=== PATIENT | male | born 1980 | race American Indian/Alaskan Native ===

== ENCOUNTER 2017-07-06 18:53 | Emergency (ER) | payer OTHER ==
[2017-07-06] MEDS ORDERED: NS 0.9% 1000 ML* 2,000 ML IV ONE (19:29)
[2017-07-06] MEDS ORDERED: Morphine INJ* 4 MG/ML 1 ML CARPUJECT IV ONE (19:29)
[2017-07-06] MEDS ORDERED: Ondansetron INJ* 2 MG/ML VIAL IV ONE (19:29)
[2017-07-06] MEDS ORDERED: Pantoprazole IV* 40 MG IV ONE (19:29)
[2017-07-06] MEDS ORDERED: LORazepam INJ* 2 MG/ML 1 ML VIAL IV ONE (19:36)
[2017-07-06] MEDS ORDERED: Al Hydrox/Mg Hydrox/Simet LIQ* 30 ML UDC PO ONE (19:37)
[2017-07-06] MEDS ORDERED: Lidocaine 2% VISCOUS* 15 ML UDC PO ONE (19:37)
[2017-07-06 20:05] LABS: Hematocrit 39 % (42-52); Hemoglobin 13.1 g/dl (14.0-18.0); Mean Corpuscular HGB Conc 34 g/dl (31-36); Mean Corpuscular Hemoglobin 31 pg (27-31); Mean Corpuscular Volume 91 fL (80-94); Mean Platelet Volume 8 um3 (7.4-10.4); Red Blood Count 4.24 10^6/ul (4.0-5.4); Red Cell Distribution Width 14 % (10.5-15); White Blood Count 7.9 10^3/ul (3.5-10.8)
[2017-07-06 20:11] LABS: Urine Bilirubin Negative (Negative); Urine Glucose Negative (Negative); Urine Nitrite Negative (Negative)
[2017-07-06 20:15] LABS: Albumin 4.3 g/dL (3.2-5.2); BUN/Creatinine Ratio 17.3 (8-20); C Reactive Protein 1.17 mg/L (< 5.00); Calcium 9.5 mg/dL (8.6-10.3); EGFR African American 111.9 (>60); Globulin 2.2 g/dL (2-4); Potassium 3.9 mmol/L (3.5-5.0); Total Bilirubin 0.4 mg/dL (0.2-1.0); Total Protein 6.5 g/dL (6.4-8.9)
--- NOTE | 2017-07-06 20:27 | RAD ---
HISTORY: Right upper quadrant pain, epigastric pain, vomiting COMPARISONS: None TECHNIQUE: Multiple transverse and longitudinal ultrasound images were obtained of the right upper quadrant of the abdomen using grayscale and color Doppler imaging. FINDINGS: LIVER: The liver is normal in shape, size, contour, and echogenicity. There are no focal parenchymal masses. There is normal hepatopedal flow of the portal vein on Doppler imaging. BILIARY TREE: There is no intrahepatic or extrahepatic biliary dilatation. The common duct measures 0.3 cm. GALLBLADDER: The gallbladder is incompletely distended but is grossly normal. There is no sonographic Ness sign. PANCREAS: The head of the pancreas is unremarkable. The tail of the pancreas is not well visualized secondary to overlying bowel gas. RIGHT KIDNEY: The right kidney is normal in shape, size, contour, and echogenicity. There is no hydronephrosis or nephrolithiasis. The right kidney measures 12.6 x 5.1 x 5.4 cm. AORTA AND IVC: The aorta and IVC are unremarkable. FLUID: There are no pleural effusions. There is no free fluid within the hepatorenal recess. OTHER FINDINGS: None. IMPRESSION: NO ACUTE SONOGRAPHIC PATHOLOGY OF THE VISUALIZED PORTION OF THE ABDOMEN
--- NOTE | 2017-07-06 21:01 | RAD ---
HISTORY: Right knee patellar pain COMPARISONS: None VIEWS: 4, Frontal, lateral, axial, and oblique views of the right knee FINDINGS: BONE DENSITY: Normal. BONES: There is no displaced fracture. JOINTS: There is no arthropathy. ALIGNMENT: There is no dislocation. SOFT TISSUES: Unremarkable. OTHER FINDINGS: None. IMPRESSION: NO ACUTE OSSEOUS INJURY. IF SYMPTOMS PERSIST, RECOMMEND REPEAT IMAGING.
[2017-07-06] MEDS ORDERED: Omeprazole CAP* 20 MG PO ONE (23:01)
[2017-07-06] MEDS ORDERED: Ondansetron ODT TAB* 4 MG PO ONE (23:02)
--- NOTE | 2017-07-06 23:07 | ED ---
Elise Márquez Alfonso, scribed for Haris Silverman MD on 07/06/17 at 1936 . Abdominal Pain/Male - HPI Summary HPI Summary: This patient is a 36 year old M presenting to [facility] with a chief complaint of abdominal pain since 1600 today. The abd pain is described as "twisting in stomach" in right and middle side of abdomen. Pt reports acid reflux (gradually worsening for last 6 months), vomiting, and blood in stool (once a week for the past 6 months). The patient rates the pain 7/10 in severity. Pt reports that the stool has recently been soft and BM frequency has increased in the past few days. Pt reports right knee pain. - History of Current Complaint Chief Complaint: EDAbdPain Stated Complaint: VOMITING Time Seen by Provider: 07/06/17 19:25 Hx Obtained From: Patient Onset/Duration: Gradual Onset, Still Present, Other - lasting 6 months Timing: Intermittent Severity Currently: Moderate Pain Intensity: 7 Pain Scale Used: 0-10 Numeric Location: Other - right middle Character: Other: - "twisting in stomach" Alleviating Factor(s): Nothing Associated Signs And Symptoms: Positive: Other - acid reflux (gradually worsening for last 6 months), vomiting, and blood in stool (once a week for the past 6 months).the stool has recently been soft and BM frequency has increased in the past few days. Pt reports right knee pain. - Allergies/Home Medications Allergies/Adverse Reactions: Allergies Allergy/AdvReac Type Severity Reaction Status Date / Time No Known Allergies Allergy Verified 07/06/17 19:38 PMH/Surg Hx/FS Hx/Imm Hx GI History: Reports: Other GI Disorders - internal hemorrhoids, polyps in colon Musculoskeletal History: Reports: Hx Scoliosis, Other Musculoskeletal History - spina bifida Opthamlomology History: Denies: Hx Legally Blind EENT History: Denies: Hx Deafness Infectious Disease History: No Infectious Disease History: Reports: History Other Infectious Disease - H. pylori Denies: Traveled Outside the [place] in Last 30 Days - Family History Known Family History: Negative: Cardiac Disease - Social History Alcohol Use: None Hx Substance Use: No Substance Use Type: Reports: None Hx Tobacco Use: No Review of Systems Positive: Abdominal Pain, Vomiting, Other - acid reflux, blood in stool Positive: Other - knee pain All Other Systems Reviewed And Are Negative: Yes Physical Exam - Summary Physical Exam Summary: General: Mildly ill-appearing, no pain distress Skin: warm, color reflects adequate perfusion, dry Head: normal Eyes: EOMI, DANIELLA ENT: normal Neck: supple, nontender Respiratory: CTA, breath sounds present Cardiovascular: Tachycardic Abdomen: Tender in RUQ and epigastrium. Non tender lower abdomen Bowel: hypoactive bowel sounds Musculoskeletal: normal, strength/ROM intact Neurological: normal, sensory/motor intact, A&O x3 Psychological: affect/mood appropriate Triage Information Reviewed: Yes Vital Signs On Initial Exam: Initial Vitals Temp Pulse Resp BP Pulse Ox 98.4 F 97 20 125/83 98 07/06/17 19:01 07/06/17 19:01 07/06/17 19:01 07/06/17 19:01 07/06/17 19:01 Vital Signs Reviewed: Yes Diagnostics - Vital Signs Vital Signs Temp Pulse Resp BP Pulse Ox 07/06/17 19:01 98.4 F 97 20 125/83 98 - Laboratory Lab Results: Lab Results 07/06/17 07/06/17 07/06/17 Range/Units 19:44 19:44 19:44 WBC 7.9 (3.5-10.8) 10^3/ul RBC 4.24 (4.0-5.4) 10^6/ul Hgb 13.1 L (14.0-18.0) g/dl Hct 39 L (42-52) % MCV 91 (80-94) fL MCH 31 (27-31) pg MCHC 34 (31-36) g/dl RDW 14 (10.5-15) % Plt Count 180 (150-450) 10^3/ul MPV 8 (7.4-10.4) um3 Neut % (Auto) 52.0 (38-83) % Lymph % (Auto) 35.6 (25-47) % Vernon % (Auto) 9.3 H (1-9) % Eos % (Auto) 2.4 (0-6) % Baso % (Auto) 0.7 (0-2) % Absolute Neuts (auto) 4.1 (1.5-7.7) 10^3/ul Absolute Lymphs (auto) 2.8 (1.0-4.8) 10^3/ul Absolute Monos (auto) 0.7 (0-0.8) 10^3/ul Absolute Eos (auto) 0.2 (0-0.6) 10^3/ul Absolute Basos (auto) 0.1 (0-0.2) 10^3/ul Absolute Nucleated RBC 0 10^3/ul Nucleated RBC % 0 INR (Anticoag Therapy) 0.91 (0.89-1.11) APTT 30.9 (26.0-36.3) seconds Sodium 138 (133-145) mmol/L Potassium 3.9 (3.5-5.0) mmol/L Chloride 105 (101-111) mmol/L Carbon Dioxide 28 (22-32) mmol/L Anion Gap 5 (2-11) mmol/L BUN 17 (6-24) mg/dL Creatinine 0.98 (0.67-1.17) mg/dL Est GFR ( Amer) 111.9 (>60) Est GFR (Non-Af Amer) 87.0 (>60) BUN/Creatinine Ratio 17.3 (8-20) Glucose 99 (70-100) mg/dL Lactic Acid (0.5-2.0) mmol/L Calcium 9.5 (8.6-10.3) mg/dL Total Bilirubin 0.40 (0.2-1.0) mg/dL AST 19 (13-39) U/L ALT 37 (7-52) U/L Alkaline Phosphatase 47 (34-104) U/L C-Reactive Protein 1.17 (< 5.00) mg/L Total Protein 6.5 (6.4-8.9) g/dL Albumin 4.3 (3.2-5.2) g/dL Globulin 2.2 (2-4) g/dL Albumin/Globulin Ratio 2.0 (1-3) Lipase 15 (11.0-82.0) U/L Urine Color Urine Appearance Urine pH (5-9) Ur Specific Burgaw (1.010-1.030) Urine Protein (Negative) Urine Ketones (Negative) Urine Blood (Negative) Urine Nitrate (Negative) Urine Bilirubin (Negative) Urine Urobilinogen (Negative) Ur Leukocyte Esterase (Negative) Urine Glucose (Negative) 07/06/17 07/06/17 Range/Units 19:44 19:44 WBC (3.5-10.8) 10^3/ul RBC (4.0-5.4) 10^6/ul Hgb (14.0-18.0) g/dl Hct (42-52) % MCV (80-94) fL MCH (27-31) pg MCHC (31-36) g/dl RDW (10.5-15) % Plt Count (150-450) 10^3/ul MPV (7.4-10.4) um3 Neut % (Auto) (38-83) % Lymph % (Auto) (25-47) % Vernon % (Auto) (1-9) % Eos % (Auto) (0-6) % Baso % (Auto) (0-2) % Absolute Neuts (auto) (1.5-7.7) 10^3/ul Absolute Lymphs (auto) (1.0-4.8) 10^3/ul Absolute Monos (auto) (0-0.8) 10^3/ul Absolute Eos (auto) (0-0.6) 10^3/ul Absolute Basos (auto) (0-0.2) 10^3/ul Absolute Nucleated RBC 10^3/ul Nucleated RBC % INR (Anticoag Therapy) (0.89-1.11) APTT (26.0-36.3) seconds Sodium (133-145) mmol/L Potassium (3.5-5.0) mmol/L Chloride (101-111) mmol/L Carbon Dioxide (22-32) mmol/L Anion Gap (2-11) mmol/L BUN (6-24) mg/dL Creatinine (0.67-1.17) mg/dL Est GFR ( Amer) (>60) Est GFR (Non-Af Amer) (>60) BUN/Creatinine Ratio (8-20) Glucose (70-100) mg/dL Lactic Acid 0.9 (0.5-2.0) mmol/L Calcium (8.6-10.3) mg/dL Total Bilirubin (0.2-1.0) mg/dL AST (13-39) U/L ALT (7-52) U/L Alkaline Phosphatase (34-104) U/L C-Reactive Protein (< 5.00) mg/L Total Protein (6.4-8.9) g/dL Albumin (3.2-5.2) g/dL Globulin (2-4) g/dL Albumin/Globulin Ratio (1-3) Lipase (11.0-82.0) U/L Urine Color Straw Urine Appearance Clear Urine pH 7.0 (5-9) Ur Specific Burgaw 1.003 L (1.010-1.030) Urine Protein Negative (Negative) Urine Ketones Negative (Negative) Urine Blood Negative (Negative) Urine Nitrate Negative (Negative) Urine Bilirubin Negative (Negative) Urine Urobilinogen Negative (Negative) Ur Leukocyte Esterase Negative (Negative) Urine Glucose Negative (Negative) Result Diagrams: 07/06/17 19:44 07/06/17 19:44 Lab Statement: Any lab studies that have been ordered have been reviewed, and results considered in the medical decision making process. - Radiology Knee XRay Radiology Interpretation Completed By: Radiologist - NO ACUTE OSSEOUS INJURY. IF SYMPTOMS PERSIST, RECOMMEND REPEAT IMAGING. ED physician has reviewed this radiology report and agrees. - Additional Comments Diagnostic Additional Comments: US gallbladder reveals, per radiologist, NO ACUTE SONOGRAPHIC PATHOLOGY OF THE VISUALIZED PORTION OF THE ABDOMEN. ED physician has reviewed this radiology report and agrees. Abdominal Pain Fem Course/Dx - Course Course Of Treatment: IMPROVED IN ED. DISCUSSED RESULTS WITH PATIENT. RX OMEPRAZOLE AND ZOFRAN. F/U WITH PMD; RETURN IF WORSE. - Diagnoses Provider Diagnoses: Epigastric pain, Nausea & vomiting, GERD (gastroesophageal reflux disease) Discharge - Discharge Plan Condition: Stable Disposition: HOME Prescriptions: Omeprazole CAP* [Prilosec CAP* 20 MG] 20 mg PO BID #30 cap. Ondansetron ODT TAB* [Zofran 4 MG Odt TAB*] 4 mg PO Q6H PRN #15 tab.odt PRN Reason: Nausea Patient Education Materials: Gastroesophageal Reflux Disease (ED), Acute Nausea and Vomiting (ED), Epigastric Pain (ED), Knee Pain (ED) Referrals: No Primary Care Phys,NOPCP [Primary Care Provider] - [facility] [Outside] Additional Instructions: FOLLOW UP WITH YOUR DOCTOR. RETURN TO THE EMERGENCY DEPARTMENT FOR ANY WORSENING OF YOUR CONDITION; PAIN, FEVER, DEHYDRATION, YOU FEEL ILL OR QUESTIONS OR CONCERNS. The documentation as recorded by the Elise shepherd Alfonso accurately reflects the service I personally performed and the decisions made by , Haris Silverman MD.
[2017-07-06 23:15] VITALS: BP 129/76
== END 2017-07-06 23:16 | disposition home or self-care (01) ==
LOC: ED 18:53
DX: K21.9 Gastro-esophageal reflux disease without esophagitis (principal); R10.13 Epigastric pain; R11.2 Nausea with vomiting, unspecified; R10.9 Unspecified abdominal pain
CPT/HCPCS: 36415; 76705; 80053; 81003; 83605; 83690; 85025; 85610; 85730; 86140; 96374; 96375; 99282; A9270-GY; J2060; J2270; J2405

== ENCOUNTER 2017-07-18 10:37 | Emergency (ER) | payer OTHER ==
[2017-07-18 11:13] LABS: Hematocrit 39 % (42-52); Hemoglobin 13.1 g/dl (14.0-18.0); Mean Corpuscular HGB Conc 34 g/dl (31-36); Mean Corpuscular Hemoglobin 31 pg (27-31); Mean Corpuscular Volume 92 fL (80-94); Mean Platelet Volume 8 um3 (7.4-10.4); Red Blood Count 4.22 10^6/ul (4.0-5.4); Red Cell Distribution Width 14 % (10.5-15); White Blood Count 8.1 10^3/ul (3.5-10.8)
[2017-07-18 11:26] LABS: ALT 52 U/L (7-52); AST 27 U/L (13-39); Alkaline Phosphatase 61 U/L (34-104); Anion Gap 6 mmol/L (2-11); BUN/Creatinine Ratio 20.6 (8-20); Blood Urea Nitrogen 22 mg/dL (6-24); CO2 Carbon Dioxide 24 mmol/L (22-32); Calcium 9.3 mg/dL (8.6-10.3); Chloride 104 mmol/L (101-111); EGFR African American 101.1 (>60); EGFR Non-African American 78.6 (>60); Globulin 2.3 g/dL (2-4); Glucose 102 mg/dL (70-100); Potassium 4.1 mmol/L (3.5-5.0); Sodium 134 mmol/L (133-145); Total Protein 6.3 g/dL (6.4-8.9)
[2017-07-18 11:29] LABS: Urine Bilirubin Negative (Negative); Urine Glucose Negative (Negative); Urine Nitrite Negative (Negative)
[2017-07-18 11:38] LABS: Benzodiazepine Urine Screen None Detected (None Detect)
--- NOTE | 2017-07-18 11:54 | RAD ---
INDICATION: Atraumatic low back pain COMPARISON: None. TECHNIQUE: 3 views of the lumbar spine were obtained. FINDINGS: The vertebra are in normal alignment. No fracture is seen. Disc spaces appear maintained. . IMPRESSION: No evidence of fracture or subluxation.
[2017-07-18] MEDS ORDERED: Ibuprofen TAB* 600 MG PO ONE (12:12)
[2017-07-18 12:14] LABS: Acetaminophen < 15 mcg/mL; Alcohol < 10 mg/dL (<10); Salicylate < 2.50 mg/dL (<30)
[2017-07-18 12:28] LABS: TSH (Thyroid Stimulating Horm) 1.81 mcIU/mL (0.34-5.60)
[2017-07-18 14:18] VITALS: BP 112/73
--- NOTE | 2017-07-19 08:25 | ED ---
Paul Márquez Angela, scribed for Jeferson Orantes MD on 07/18/17 at 1056 . Psychiatric Complaint - HPI Summary HPI Summary: This pt is a 36 y/o male, with PMHx of schizophrenia, presenting to [facility] c/o auditory hallucinations. Pt reports that he has been hearing high pitched noises , described as "a group of people talking in the background." He denies visual hallucinations. Pt believes that he might have built up tolerance to the medications he is currently on. He has been on his medications for 1 year. Pt additionally c/o right lower back pain x4 days. He notes he has been sitting a lot recently due to group meetings. Pt reports gaining 20 lbs since then. PMHx includes schizophrenia, spina bifida, scoliosis. - History Of Current Complaint Chief Complaint: EDMentalHealth Time Seen by Provider: 07/18/17 10:45 Hx Obtained From: Patient Onset/Duration: Lasting Days, Still Present Timing: Days Severity Currently: Severe Character: Fearful Aggravating Factor(s): Other - built up tolerance to current medications Associated Signs And Symptoms: Positive: Hallucinating - POSITVIE auditory. DENIES visual. Has Suicidal: Denies: Thoughts, With A Plan - Allergies/Home Medications Allergies/Adverse Reactions: Allergies Allergy/AdvReac Type Severity Reaction Status Date / Time No Known Allergies Allergy Verified 07/06/17 19:38 PMH/Surg Hx/FS Hx/Imm Hx GI History: Reports: Other GI Disorders - internal hemorrhoids, polyps in colon Musculoskeletal History: Reports: Hx Scoliosis, Other Musculoskeletal History - spina bifida Sensory History: Denies: Hx Legally Blind, Hx Deafness Opthamlomology History: Denies: Hx Legally Blind Psychiatric History: Reports: Hx Schizophrenia Infectious Disease History: Yes Infectious Disease History: Reports: History Other Infectious Disease - H. pylori Denies: Traveled Outside the [place] in Last 30 Days - Family History Known Family History: Negative: Cardiac Disease - Social History Alcohol Use: None Hx Substance Use: No Substance Use Type: Reports: None Hx Tobacco Use: No Smoking Status (MU): Unknown if Ever Smoked Review of Systems Constitutional: Other - gained weight Negative: Fever, Chills Eyes: Negative ENT: Negative Cardiovascular: Negative Musculoskeletal: Other - right lower back pain Skin: Negative Psychological: Other - auditory hallucinations Negative: Other - visual hallucinations All Other Systems Reviewed And Are Negative: Yes Physical Exam - Summary Physical Exam Summary: VITAL SIGNS: Reviewed. GENERAL: Patient is a well-developed and nourished male who is lying comfortable in the stretcher. Patient is not in any acute respiratory distress. HEAD AND FACE: No signs of trauma. No ecchymosis, hematomas or skull depressions. No sinus tenderness. EYES: PERRLA, EOMI x 2, No injected conjunctiva, no nystagmus. EARS: Hearing grossly intact. Ear canals and tympanic membranes are within normal limits. MOUTH: Oropharynx within normal limits. NECK: Supple, trachea is midline, no adenopathy, no JVD, no carotid bruit, no c- spine tenderness, neck with full ROM. CHEST: Symmetric, no tenderness at palpation LUNGS: Clear to auscultation bilaterally. No wheezing or crackles. CVS: Regular rate and rhythm, S1 and S2 present, no murmurs or gallops appreciated. ABDOMEN: Soft, non-tender. No signs of distention. No rebound no guarding, and no masses palpated. Bowel sounds are normal. EXTREMITIES: FROM in all major joints, no edema, no cyanosis or clubbing. MSK: right paraspinal muscle tenderness. NEURO: Alert and oriented x 3. No acute neurological deficits. Speech is normal and follows commands. SKIN: Dry and warm Triage Information Reviewed: Yes Vital Signs On Initial Exam: Initial Vitals Temp Pulse Resp BP Pulse Ox 97.6 F 106 18 113/83 97 07/18/17 10:41 07/18/17 10:41 07/18/17 10:41 07/18/17 10:41 07/18/17 10:41 Vital Signs Reviewed: Yes Diagnostics - Vital Signs Vital Signs Temp Pulse Resp BP Pulse Ox 07/18/17 10:41 97.6 F 106 18 113/83 97 - Laboratory Result Diagrams: 07/18/17 11:00 07/18/17 11:00 Lab Statement: Any lab studies that have been ordered have been reviewed, and results considered in the medical decision making process. - Radiology Lumbar spine XR Xray Interpretation: No Acute Changes - IMPRESSION: No evidence of fracture or subluxation. ED physician has reviewed this radiology report and agrees. Radiology Interpretation Completed By: Radiologist Course/Dx - Course Assessment/Plan: This pt is a 36 y/o male, with PMHx of schizophrenia, presenting to [facility] c/o auditory hallucinations. Pt reports that he has been hearing high pitched noises, described as "a group of people talking in the background." He denies visual hallucinations. Pt believes that he might have built up tolerance to the medications he is currently on. He has been on his medications for 1 year. Pt additionally c/o right lower back pain x4 days. He notes he has been sitting a lot recently due to group meetings. Pt reports gaining 20 lbs since then. PMHx includes schizophrenia, spina bifida, scoliosis. All blood work within normal limits. Lumbar spine XR shows no evidence of fracture or subluxation. Pt is medically cleared. He is waiting for [facility]. Pt's case was reviewed by Dr. Dumont, who recommends discharge. Pt's medications will need to be adjusted at [facility]. Pt will be discharged with diagnosis of schizophrenia. - Differential Dx/Clinical Impression Provider Diagnosis: Schizophrenia Discharge - Discharge Plan Condition: Stable Disposition: HOME Referrals: No Primary Care Phys,NOPCP [Medical Doctor] - The documentation as recorded by the Paul shepherd Angela accurately reflects the service I personally performed and the decisions made by me, Jeferson Orantes MD.
== END 2017-07-18 13:26 | disposition home or self-care (01) ==
LOC: ED 10:37
DX: F20.9 Schizophrenia, unspecified (principal); R44.3 Hallucinations, unspecified; M54.5 Low back pain
CPT/HCPCS: 36415; 72100; 80053; 80307; 80320; 80329; 81003; 84443; 85025; 99284; A9270-GY; G0480

== ENCOUNTER 2017-07-21 12:50 | Emergency (ER) | payer OTHER ==
[2017-07-21] MEDS ORDERED: hydrOXYzine HCL TAB* 50 MG PO ONE (13:51)
[2017-07-21 14:31] LABS: Hematocrit 40 % (42-52); Hemoglobin 13.6 g/dl (14.0-18.0); Mean Corpuscular HGB Conc 34 g/dl (31-36); Mean Corpuscular Hemoglobin 31 pg (27-31); Mean Corpuscular Volume 91 fL (80-94); Mean Platelet Volume 8 um3 (7.4-10.4); Red Blood Count 4.39 10^6/ul (4.0-5.4); Red Cell Distribution Width 14 % (10.5-15); White Blood Count 8.8 10^3/ul (3.5-10.8)
[2017-07-21 14:47] LABS: ALT 37 U/L (7-52); AST 23 U/L (13-39); Albumin 4.7 g/dL (3.2-5.2); Alkaline Phosphatase 54 U/L (34-104); Anion Gap 7 mmol/L (2-11); Blood Urea Nitrogen 15 mg/dL (6-24); CO2 Carbon Dioxide 29 mmol/L (22-32); Calcium 9.4 mg/dL (8.6-10.3); Chloride 103 mmol/L (101-111); EGFR African American 109.4 (>60); Globulin 2.4 g/dL (2-4); Glucose 99 mg/dL (70-100); Sodium 139 mmol/L (133-145); Total Protein 7.1 g/dL (6.4-8.9)
[2017-07-21 14:59] LABS: Urine Bilirubin Negative (Negative); Urine Glucose Negative (Negative); Urine Nitrite Negative (Negative)
[2017-07-21 15:16] LABS: Benzodiazepine Urine Screen None Detected (None Detect)
[2017-07-21 15:19] LABS: Acetaminophen < 15 mcg/mL; Alcohol < 10 mg/dL (<10); Salicylate < 2.50 mg/dL (<30)
[2017-07-21 16:33] VITALS: BP 131/77
--- NOTE | 2017-07-21 22:26 | ED ---
Adelina Márquez Abhishek, scribed for Kirt Garcia MD on 07/21/17 at 1324 . Psychiatric Complaint - HPI Summary HPI Summary: This patient is a 36 year old M presenting to [facility] with a chief complaint of psychiatric complaint 07/15/17. The patient rates the pain 0/10 in severity. Symptoms aggravated by medication. Symptoms alleviated by nothing. Patient reports anxiety, muscle cramping, and auditory hallucinations described as a group of people talking into patients ear. Patient denies SI, sleeping problems and HI. The patient reports taking the following medication(s): risperidone (3mg twice a day). PMHX of schizophrenia. - History Of Current Complaint Chief Complaint: EDMentalHealth Time Seen by Provider: 07/21/17 13:02 Hx Obtained From: Patient Onset/Duration: Gradual Onset, Lasting Days - since 07/21/17, Still Present Timing: Constant Character: Anxious Aggravating Factor(s): Other - Prescribed medication Alleviating Factor(s): Nothing Associated Signs And Symptoms: Positive: Hallucinating. Negative: Hostile Related History: Positive For: Prior Psychiatric Issues - schizophrenia Has Suicidal: Denies: Thoughts Has Homicidal: Denies: Thoughts - Allergies/Home Medications Allergies/Adverse Reactions: Allergies Allergy/AdvReac Type Severity Reaction Status Date / Time No Known Allergies Allergy Verified 07/21/17 12:55 PMH/Surg Hx/FS Hx/Imm Hx GI History: Reports: Other GI Disorders - internal hemorrhoids, polyps in colon Musculoskeletal History: Reports: Hx Scoliosis, Other Musculoskeletal History - spina bifida Sensory History: Denies: Hx Legally Blind, Hx Deafness Opthamlomology History: Denies: Hx Legally Blind Psychiatric History: Reports: Hx Schizophrenia Denies: Hx Eating Disorder, Hx of Violent Episodes Against Others - Immunization History Immunizations Up to Date: Yes Infectious Disease History: No Infectious Disease History: Reports: History Other Infectious Disease - H. pylori Denies: Traveled Outside the [place] in Last 30 Days - Family History Known Family History: Positive: Diabetes, Other - Cancer Negative: Cardiac Disease - Social History Alcohol Use: None Hx Substance Use: No Hx Tobacco Use: No Smoking Status (MU): Current Some Day Smoker Review of Systems Constitutional: Negative Eyes: Negative ENT: Negative Cardiovascular: Negative Respiratory: Negative Gastrointestinal: Negative Genitourinary: Negative Positive: Other - Muscle cramping Skin: Negative Neurological: Other - auditory hallucinations described as "a group of people talking" Positive: Anxious, Other - Negative SI, HI, sleeping problems All Other Systems Reviewed And Are Negative: Yes Physical Exam - Summary Physical Exam Summary: Constitutional: Well-developed, Well-nourished, Alert. (-) Distressed Skin: Warm, Dry HENT: Normocephalic; Atraumatic Eyes: Conjunctiva normal Neck: Musculoskeletal ROM normal neck. (-) JVD, (-) Stridor, (-) Tracheal deviation Cardio: Rhythm regular, rate normal, Heart sounds normal; Intact distal pulses; The pedal pulses are 2+ and symmetric. Radial pulses are 2+ and symmetric. (-) Murmur Pulmonary/Chest wall: Effort normal. (-) Respiratory distress, (-) Wheezes, (-) Rales Abd: Soft, (-) Tenderness, (-) Distension, (-) Guarding, (-) Rebound Musculoskeletal: (-) Edema Lymph: (-) Cervical adenopathy Neuro: Alert, Oriented x3 Psych: anxious appearing Triage Information Reviewed: Yes Vital Signs On Initial Exam: Initial Vitals Temp Pulse Resp BP Pulse Ox 98.0 F 108 16 135/94 97 07/21/17 12:55 07/21/17 12:55 07/21/17 12:55 07/21/17 12:55 07/21/17 12:55 Vital Signs Reviewed: Yes - Diana Coma Scale Coma Scale Total: 15 Diagnostics - Vital Signs Vital Signs Temp Pulse Resp BP Pulse Ox 07/21/17 12:55 98.0 F 108 16 135/94 97 - Laboratory Result Diagrams: 07/21/17 14:21 07/21/17 14:21 Lab Statement: Any lab studies that have been ordered have been reviewed, and results considered in the medical decision making process. Course/Dx - Course Assessment/Plan: This patient is a 36 year old M presenting to [facility] with a chief complaint of psychiatric complaint 07/15/17. Patient reports anxiety, muscle cramping, and auditory hallucinations described as a group of people talking into patients ear. Patient denies SI, sleeping problems and HI. The patient reports taking the following medication(s): risperidone (3mg twice a day ). PMHX schizophrenia. Patient was given a mental health evaluation. All symptoms resolved with Aterax. Pt is No longer having auditory hallucination, SI or HI. Dx is panic attack and anxiety. Pt is recommended to follow up with [facility] in 2 days. Patient will be discharged. - Differential Dx/Clinical Impression Provider Diagnosis: Panic attack, Anxiety Discharge - Discharge Plan Condition: Good Disposition: HOME Patient Education Materials: Anxiety (ED), Panic Attack (ED) Referrals: [facility], [Primary Care Provider] - (Patient is recommended to follow up with [facility] within 2 to 3 days.) The documentation as recorded by the Adelina shepherd Abhishek accurately reflects the service I personally performed and the decisions made by , Kirt Garcia MD.
== END 2017-07-21 18:03 | disposition home or self-care (01) ==
LOC: ED 12:50
DX: F41.0 Panic disorder [episodic paroxysmal anxiety] (principal); F20.9 Schizophrenia, unspecified; M41.9 Scoliosis, unspecified; Q05.9 Spina bifida, unspecified; F17.200 Nicotine dependence, unspecified, uncomplicated
CPT/HCPCS: 36415; 80053; 80307; 80320; 80329; 81003; 84443; 85025; 99282; A9270-GY; G0480